=== PATIENT | female | born 1955 | race Caucasian/White ===

== ENCOUNTER 2016-12-27 16:46 | Inpatient (IN) | payer OTHER, BC ==
[~2016-12-27] VITALS: Ht 162.6 cm; Wt 118.9 kg
[~2016-12-27 16:46] MED LIST: ALDACTONE25 MG PO; AMITRIPTYLINE H10 MG PO; ATORVASTATIN CA40 MG PO; DIFLUCAN150 MG PO; ESOMEPRAZOLE MA20 MG PO; ESTRACE1 MG PO; FIBER GUMMY PO; HAIR/SKIN/NAILS PO; KLOR-CON 1010 MEQ PO; LANTUS SOL100 UNITS/ SC; LEVAQUIN500 MG PO; MACROBID100 MG PO; METOPROLOL SUCC50 MG PO; MORPHINE SULFAT15 M2 PO; MULTIPLE VITAMIN PO; NEURONTIN300 MG PO; NOVOLIN NP100 UNITS/ SC; NOVOLIN R U-1001 ML; OXYCODONE HCL5 MG PO; PAXIL10 MG PO; PYRIDIUM200 MG PO; TORSEMIDE20 MG PO; VITAMIN D-31000 UNIT PO; XARELTO10 MG PO
--- NOTE | 2016-12-27 17:53 | ED CLINICAL REPORT ---
Clinical Report - Physicians/Mid Levels [facility] [address] [place] [address] 12/27/2016 16:47 Patient: RAFAEL HARGROVE V Time Seen: 17:38; initial patient contact, initial documentation, patient care assumed. Arrived- By private vehicle. Historian- patient. HISTORY OF PRESENT ILLNESS Chief Complaint: LESION, BOIL and TENDER AREA. This started about 1 1/2 weeks ago and is still present and worsening. Not itchy or burning. It is described as painful. It has been located on the right and left abdomen. No cause has been identified. Similar symptoms previously: None. Recent medical care: The patient was seen recently in the office. ( went to dr about 1 wk ago, placed on bactrim, area just keeps getting worse). REVIEW OF SYSTEMS No fever. All systems otherwise negative, except as recorded above. PAST HISTORY See nurses notes. PROBLEMS: Pacemaker. --19:04 Meenakshi Frederick R.N. Cardiovascular Risk Factors. Low back pain. Neuropathy. Hypothyroidism. Hyperlipidemia. Angina. Gastroesophageal Reflux Disease. Anxiety Reaction. Congestive Heart Failure. Arrhythmia. Atrial Fibrillation. Chronic Back Pain. Hypertension. --19:05 Meenakshi Frederick R.N. ADDITIONAL SURGERIES: Appendectomy. Back Surgery. Cardiac Procedures. Cholecystectomy. . Hysterectomy. Oophorectomy. Pacemaker. Salpingectomy. --19:06 Meenakshi Frederick RSageN. Diabetes mellitus. SOCIAL HISTORY Never smoker. Occasional alcohol use. No drug use. No recent travel. Is a local resident. FAMILY HISTORY Negative. ADDITIONAL NOTES The nursing notes have been reviewed with agreement regarding the chief complaint, HPI, ROS, PMH and patient medications and allergies. PHYSICAL EXAM Vital Signs: 12/27/2016 17:22 HR: 69. RR: 16. O2 saturation: 98%. Temp: 98.6 F. Have been reviewed as normal and appear to be correct. Blood pressure: 147/51- blood pressure normal. Appearance: Alert. Oriented X3. No acute distress. Eyes: Pupils equal, round and reactive to light. Conjunctivae and eyelids normal. Neck: Neck supple. Respiratory: No respiratory distress. Abdomen: Nontender. No organomegaly. (obese). Skin: Skin warm and dry. Normal skin color. No rash. Normal skin turgor. Single large abscess with fluctuance, pointing and cellulitis to the abdomen. No drainage. (very large abscess covering entire suprapubic area and pelvis, size of a softball or larger). Extremities: Normal external inspection. Extremities nontender. Neuro: Oriented X 3. No motor deficit. No sensory deficit. LABS, X-RAYS, AND EKG Laboratory Tests: CBC w Diff: (NANCY: 12/27/2016 18:30) ( [facility] 12/27/2016 19:05) Final results Test Result Flag Units (Reference) WHITE BLOOD COUNT 13.2 H K/uL (4.5-11.5) RED BLOOD COUNT 4.67 M/uL (4.00-5.20) HEMOGLOBIN 13.0 gm/dL (12.0-16.0) HEMATOCRIT 40.6 % (36.0-46.0) MEAN CELL VOLUME 87 fL (80-100) MEAN CORPUSCULAR HGB 28 pg (26-34) MEAN CORPUSCULAR HGB CONC 32 g/dL (31-37) RED CELL DISTRIBUTION WIDTH 16.4 H % (11.6-14.8) PLATELET COUNT 399 K/uL (150-400) NEUTROPHIL % 69.3 % (50-75) LYMPH % 22.6 L % (25-40) MONO % 5.8 % (3-14) EOSINOPHIL % 2.0 % (0-4) BASOPHIL % 0.3 % (0-2) Lactate, Serum: (NANCY: 12/27/2016 18:30) ( [facility] 12/27/2016 19:21) Final results Test Result Flag Units (Reference) LACTIC ACID 1.4 mmol/L (0.4-2.0) [id number]: (NANCY: 12/27/2016 18:30) ( [facility] 12/27/2016 19:49) Final results Test Result Flag Units (Reference) PROCALCITONIN <0.5 ng/mL (0-0.5) PCT Concentration: Interpretation : Risk/option for action PCT <=0.5 ng/mL : Systemic : Low risk forinfection(sepsis): progression to severeis not likely. : systemic infection.Local bacterial : CAUTION-PCT levelsinfection is : below 0.5 ng/mL do notpossible. : exclude an infection,because localizedinfections (withoutsystemic signs) may beassociated with suchlow levels. If PCT ismeasured very earlyafter a bacterialchallenge (usually <6hours), these valuesmay still be low. Inthis case PCT shouldbe re-assessed 6-24hours later. PCT >0.5 and : Systemic infection: Moderate risk for<= 2 ng/mL : (sepsis) is : progression to severepossible, but : systemic infection.other conditions : The patient should beare known to : closely monitoredelevate PCT. : both clinically andby re-assessing PCTwithin 6-24 hours. PCT > 2 ng/mL : Systemic infection: High risk for(sepsis) is likely: progression to severeunless other : systemic infection.causes are known. : PCT >= 10 ng/mL : Important systemic: High likelihood ofinflammatory : severe sepsis orresponse, almost : septic shock.exclusively due to:severe bacterial :sepsis or septic :shock. : CMP: (NANCY: 12/27/2016 18:30) ( MsgRcvd 12/27/2016 19:21) Final results Test Result Flag Units (Reference) GLUCOSE 155 H mg/dL (70-110) BUN 21 H mg/dL (7-18) CREATININE 1.3 mg/dL (0.6-1.3) Estimated GFR 44.26 mL/min Estimated GFR- 53.64 mL/min Note: Persistent reduction over 3 months in eGFR<60 mL/min/1.73 m2 defines CKD. Patients with eGFR values>=60 mL/min/1.73 m2 may also have CKD if evidence ofpersistent proteinuria. Additional information may be foundat www.kidney.org. SODIUM 136 mmol/L (136-145) POTASSIUM 4.0 mmol/L (3.5-5.1) CHLORIDE 100 mmol/L (98-107) CARBON DIOXIDE 28 mmol/L (21-32) CALCIUM 10.6 H mg/dL (8.5-10.1) TOTAL PROTEIN 8.4 H g/dL (6.4-8.2) ALBUMIN 3.1 L g/dL (3.3-5.0) BILIRUBIN, TOTAL 0.2 mg/dL (0.0-1.0) ALKALINE PHOSPHATASE 154 H U/L (46-116) AST (SGOT) 23 U/L (15-37) ALT (SGPT) 37 U/L (12-78) Culture, Wound Deep: (NANCY: 12/27/2016 18:30) ( MsgRcvd 12/27/2016 19:27) IP SPECIMEN DESCRIPTION: ABDOMEN Test Result Flag Units (Reference) GRAM STAIN, WOUND, DEEP EPITHELIAL CELLS: NONE NO CELLS/NO BACTERIA: NO CELLS OR BACTERIA SEEN WHITE BLOOD CELLS: NONE . PROGRESS AND PROCEDURES Discussed case with on-call health care provider, (call returned 20:09 Dr Sanchez, surgeon). Reviewed test results and need for additional work-up. Agreed upon decision to admit. Health care provider will see patient in hospital. Discussed case with on-call health care provider, (call returned 2020 Dr Juárez). Reviewed test results and need for additional work-up. Agreed upon treatment plan and decision to admit. Health care provider will see patient in hospital. Patient counseled in person regarding the patient's stable condition, test results, diagnosis, need for additional testing, admission and surgery and wound care. Differential Diagnosis: Other possible considerations: abscess, cellulitis, sepsis, mrsa, folliculitis, substance abuse, fb, tumor. Above considerations are based on history, physical exam and laboratory data. Differential diagnosis was discussed with patient. Disposition: Admitted to Acute Care. 20:09. Condition: good and stable. CLINICAL IMPRESSION Single deep abscess to the abdominal wall. (Electronically signed by Jessenia Muhammad A.R.N.P. 12/27/2016 23:04)
--- NOTE | 2016-12-27 17:53 | ED ORDER SUMMARY ---
..... Patient: RAFAEL HARGROVE V OrderSheet [facility] VisitID: [id number] [address] [place] [address] 61y, F Registration Date/Time: 12/27/2016 ORDER SHEET Weight: 108.8 kg Allergies: Zofran GENERAL ORDERS: Blood Culture (Yes) (bactrim) Urgent (17:44 12/27/2016 HBivens A.R.N.P.) (Ack 17:58 KHoerner) (18:54 KHoerner) Culture, Wound Deep (Abdomen) (abdomen) Urgent (17:45 12/27/2016 HBivens A.R.N.P.) (Ack 17:58 KHoerner) (18:34 TChapman R.N.) CBC w Diff Urgent (17:45 12/27/2016 HBivens A.R.N.P.) (Ack 17:58 KHoerner) (18:55 KHoerner) CMP Urgent (17:45 12/27/2016 HBivens A.R.N.P.) (Ack 17:58 KHoerner) (18:55 KHoerner) Lactate, Serum Urgent (17:45 12/27/2016 HBivens A.R.N.P.) (Ack 17:58 KHoerner) (18:55 KHoerner) PCT (Procalcitonin) Urgent (17:45 12/27/2016 HBivens A.R.N.P.) (Ack 17:58 KHoerner) (18:55 KHoerner) MEDICATION ORDERS: IV FLUIDS: IV Saline Lock (17:45 12/27/2016 HBivens A.R.N.P.) (18:35 TChapman R.N.) Vancomycin IV 1 gm/200mL (NOW) (20:10 12/27/2016 HBivens A.R.N.P.) (20:35 TBowen R.N.) ORDER SHEET NOTES: [Electronically signed by Jessenia Muhammad.R.N.P. (23:04 12/27/2016)] [Electronically signed by Deandra Moya R.N. (02:50 12/28/2016)] [Electronically locked/signed by Deandra Moya R.N. (02:50 12/28/2016)]
--- NOTE | 2016-12-27 17:53 | ED NURSING NOTES ---
Clinical Report - Nurses [facility] [address] [place] [address] 12/27/2016 16:47 Patient: RAFAEL HARGROVE V TRIAGE Triage time 17:22. Acuity: LEVEL 3. Chief Complaint: BOIL and TENDER AREA. --17:32 Meenakshi Frederick R.N. 17:22 12/27/16. HR: 69. RR: 16. O2 saturation: 98%. Temp: 98.6 F. Pain level now 04/18. --17:32 Meenakshi Frederick R.N. Acuity: LEVEL 3. --17:45 Meenakshi Frederick R.N. 17:43 12/27/16. BP: 147/51. --17:45 Meenakshi Frederick R.N. Weight: 108.8 kg. Height/Length: 64 inches. BMI: 41.2. --20:48 Venancio Breen Medications Albiglutide Subcutaneous, weekly. NovoLOG Subcutaneous 40 units, before meals. --17:25 Meenakshi Frederick R.N. Toujeo. --17:26 Meenakshi Frederick R.N. Tanzeum Subcutaneous. --17:26 Meenakshi Frederick R.N. PARoxetine HCl Oral. --17:26 Meenakshi Frederick R.N. Spironolactone Oral. --17:26 Meenakshi Frederick R.N. Xarelto Oral. --17:27 Meenakshi Frederick R.N. OxyCODONE HCl Oral. --17:27 Meenakshi Frederick R.N. Estradiol Acetate Vaginal. --17:27 Meenakshi Frederick R.N. Amitriptyline HCl External. --17:28 Meenakshi Frederick R.N. Lyrica Oral. --17:28 Meenakshi Frederick R.N. Morphine Sulfate ER Beads Oral. --17:28 Meenakshi Frederick R.N. Torsemide Oral. --17:28 Meenakshi Frederick R.N. Bactrim DS Oral. --17:29 Meenakshi Frederick R.N. Allergies Zofran. --17:29 Meenakshi Frederick R.N. History Arrived by private vehicle. Historian: patient. Accompanied by family. Location - genitalia. ( noticed it coming on 1 1/2 weeks ago. has tried warm compresses). SOCIAL HX: No alcohol use or drug use. NUTRITIONAL RISK ASSESSMENT: The nutritional risk assessment revealed no deficiencies. FUNCTIONAL ASSESSMENT: Functional assessment: no impairments noted. LEARNING NEEDS ASSESSMENT: The learning needs assessment revealed no barriers. SKIN INTEGRITY ASSESSMENT: Skin integrity risk assessment completed. No skin integrity risk identified. --17:32 Meenakshi Frederick R.N. No fever, headache or difficulty breathing. PAST MEDICAL HX: Diabetes mellitus. Heart disease. FALL RISK ASSESSMENT: Fall risk assessment completed. No fall risk identified. NUTRITIONAL RISK ASSESSMENT: The nutritional risk assessment revealed no deficiencies. FUNCTIONAL ASSESSMENT: Functional assessment: no impairments noted. LEARNING NEEDS ASSESSMENT: The learning needs assessment revealed no barriers. SKIN INTEGRITY ASSESSMENT: Skin integrity risk assessment completed. No skin integrity risk identified. --17:45 Meenakshi Frederick R.N. PROBLEMS: Pacemaker. --19:04 Meenakshi Frederick R.N. Cardiovascular Risk Factors. Low back pain. Neuropathy. Hypothyroidism. Hyperlipidemia. Angina. Gastroesophageal Reflux Disease. Anxiety Reaction. Congestive Heart Failure. Arrhythmia. Atrial Fibrillation. Chronic Back Pain. Hypertension. --19:05 Meenakshi Frederick R.N. ADDITIONAL SURGERIES: Appendectomy. Back Surgery. Cardiac Procedures. Cholecystectomy. . Hysterectomy. Oophorectomy. Pacemaker. Salpingectomy. --19:06 Meenakshi Frederick R.N. Interventions ID band on patient. --17:32 Meenakshi Frederick R.N. ID band on patient. To treatment room. --17:45 Meenakshi Frederick R.N. PHYSICAL ASSESSMENT GENERAL / NEURO / PSYCH: Alert. Appears in pain. Oriented X 4. HEENT: Pupils equal, round and reactive to light. RESPIRATORY: Respirations not labored. Breath sounds within normal limits. CVS: Capillary refill less than 2 seconds. Pulses within normal limits. GI / : Abdomen nontender. ( genital area swollen and tender with areas of pus filled blisters). SKIN: Skin is warm. Drainage. Skin tenderness present. Increased warmth present. Erythema present. --17:46 Meenakshi Frederick R.N. NURSING PROGRESS NOTES The plan of care for this patient has been created. Patient gowned. Head of bed elevated. Reassurance given. Call light placed in reach. Side rails up x 1. Bed placed in lowest position. Brakes of bed on. Patient ready for evaluation- chart flagged and HEALTH NAVIGATOR notified. --17:47 Meenakshi Frederick R.N. 17:15 12/27/16. BP: 85/44. HR: 81. RR: 16. O2 saturation: 100%. --17:57 Meenakshi Frederick R.N. 18:35 12/27/2016 Site #1 started via IV in the left antecubital space with an 20g angiocath; one attempt. Blood drawn: rainbow set and cultures x1. Labeled in the presence of the patient and sent to the lab. Saline lock flushed with saline. --18:35 Meenakshi Frederick R.N. 18:46 12/27/16. Patient ID band checked for patient name and birthdate: patient confirmed. Blood samples drawn from the left antecubital space peripheral IV site with syringe by nurse ; labeled in presence of the patient and sent to lab: rainbow set: blood culture (1st set). Line flushed with 10 mL normal saline post blood draw. --18:46 Esha Mcpherson R.N. 19:17 12/27/16. BP: 125/57. HR: 75. RR: 18. O2 saturation: 95%. Temp: 98.4 F. Pain level now 5/10. --19:18 Meenakshi Frederick R.N. 19:17 12/27/16. Care transferred and report given. ( Deandra). --19:18 Meenakshi Frederick R.N. 20:35 12/27/2016 Started 1 gm of Vancomycin IVPB; at 200 mg/hr over 1 minute(s) via site #1 via IV pump. Allergies verified and confirmed 5 rights. IV patency established. IV site checked: no pain, redness, or swelling. IV flushed thoroughly pre- and post-medication administration. --20:35 Venancio Breen 21:43 12/27/2016 Vancomycin IVPB Discontinued: bag #1 completed. Total amount infused: 200 mL. IV patency established. IV site checked: no pain, redness, or swelling. IV flushed thoroughly. --21:43 Venancio Breen DISPOSITION / DISCHARGE Admitted. Report was given to a nurse via a phone call. Report included patient's care, treatment, medications, reviewed medication reconcilliation, and condition (including any recent changes or anticipated changes). All questions were answered. Report was acknowledged and care was transferred. Bed obtained (22:31). --02:48 Venancio Breen Departure time: 2230 02:49 Dec 27 2016. --02:49 Venancio Breen late entry - 02:50 12/28/16. --02:50 Venancio Breen 02:50 12/28/16. BP: 149/72. HR: 72. RR: 18. O2 saturation: 100%. Temp: deferred. Pain level now 0/10. --02:50 Venancio Breen Locked/Released at 12/28/2016 2:50 by Venancio Breen
--- NOTE | 2016-12-27 17:53 | ED ORDER SUMMARY ---
..... Patient: RAFAEL HARGROVE V OrderSheet [facility] VisitID: [id number] [address] [place] [address] 61y, F Registration Date/Time: 12/27/2016 ORDER SHEET Weight: 108.8 kg Allergies: Zofran GENERAL ORDERS: Blood Culture (Yes) (bactrim) Urgent (17:44 12/27/2016 HBivens A.R.N.P.) (Ack 17:58 KHoerner) (18:54 KHoerner) Culture, Wound Deep (Abdomen) (abdomen) Urgent (17:45 12/27/2016 HBivens A.R.N.P.) (Ack 17:58 KHoerner) (18:34 TChapman R.N.) CBC w Diff Urgent (17:45 12/27/2016 HBivens A.R.N.P.) (Ack 17:58 KHoerner) (18:55 KHoerner) CMP Urgent (17:45 12/27/2016 HBivens A.R.N.P.) (Ack 17:58 KHoerner) (18:55 KHoerner) Lactate, Serum Urgent (17:45 12/27/2016 HBivens A.R.N.P.) (Ack 17:58 KHoerner) (18:55 KHoerner) PCT (Procalcitonin) Urgent (17:45 12/27/2016 HBivens A.R.N.P.) (Ack 17:58 KHoerner) (18:55 KHoerner) MEDICATION ORDERS: IV FLUIDS: IV Saline Lock (17:45 12/27/2016 HBivens A.R.N.P.) (18:35 TChapman R.N.) Vancomycin IV 1 gm/200mL (NOW) (20:10 12/27/2016 HBivens A.R.N.P.) (20:35 TBowen R.N.) ORDER SHEET NOTES: [Electronically signed by Jessenia Muhammad.R.N.P. (23:04 12/27/2016)] [Electronically signed by Deandra Moya R.N. (02:50 12/28/2016)] [Electronically locked/signed by Deandra Moya R.N. (02:50 12/28/2016)]
[2016-12-27 23:10] VITALS: BP 130/48
[2016-12-27] MEDS ORDERED: BACTRIM DS1 TAB PO (23:57)
[2016-12-27] MEDS ORDERED: LYRICA100 MG PO (23:57)
[2016-12-28] VITALS (9 sets, daily range): BP systolic 114–151; BP diastolic 62–81
--- NOTE | 2016-12-28 | Progress Note ---
Subjective General Medical Consultation Patient Name: Maryse Barroso Admission Date: December 27, 2016 Date of Consultation: December 27, 2016 Primary Care Provider: MERY Buaer Attending Physician: Anant Juárez M.D. Admitting Physician: Anant Juárez M.D. Code Status: Full Code Room: 212 [facility] Historian: Patient Reliability: Good Chief Complaint: Abdominal wall abscess History of Present Illness: The patient is a 61-year-old female with a significant past medical history of atrial fibrillation, heart block status post pacemaker placement, hypertension, hyperlipidemia, type 2 diabetes mellitus insulin requiring, chronic kidney disease, gallbladder dysfunction, colonic polyps, cervical disc disease, lumbar disc disease, estrogen esophageal reflux, CHF presented to [facility] emergency department on the day of admission secondary to complaints of abdominal wall abscess. [facility] ER evaluation consistent with abdominal wall abscess requiring incision and drainage. Secondary to the above, the patient was admitted by Sam Sanchez M.D. with consultation by hospitalist service for further evaluation and treatment. PAST MEDICAL HISTORY Illnesses: 1. Hypertension 2. Type 2 diabetes mellitus-insulin requiring 3. Heart block status post pacemaker placement 4. Atrial fibrillation 5. Hyperlipidemia 6. Chronic kidney disease 7. Gallbladder dysfunction 8. Colonic polyps 9. Vertebral disc disease-cervical/lumbar 10. Depression 11. Gastroesophageal reflux Allergies: 1. Codeine 2. Phenergan 3. Antimicrobial-type unknown Medications: 1. Amitriptyline 10 mg by mouth daily at bedtime 2. Estradiol 1 mg by mouth daily 3. Gabapentin 600 mg by mouth 3 times a day 4. Lantus insulin 60 units subcutaneous daily at bedtime 5. Novolin R sliding scale 6. Oxycodone 5 mg by mouth 5 times a day when necessary pain 7. MS Contin 15 mg by mouth daily at bedtime 8. Paxil 25 mg by mouth daily 9. Lyrica 300 mg by mouth twice a day 10. Xarelto 20 mg by mouth daily 11. Spironolactone 25 mg by mouth daily 12. Bactrim DS one by mouth twice a day 13. Torsemide 40 mg by mouth every morning and 10 mg by mouth daily at bedtime Surgery: 1. PDA surgery 2. 2 3. KIM/BSO 4. Appendectomy 5. Cholecystectomy 6. Cervical and lumbar spine surgery 7. Pacemaker placement 8. Colonoscopy with polypectomy Injuries: 1. No significant Hospitalizations: 1. For above surgery and medical problems FAMILY HISTORY Parents: 1. Father, living, 83, heart disease, diabetes mellitus, 2. Mother, , 55, CVA, hypertension Siblings: 1. Lawrence, living, 61, healthy 2. Gato, living, 58, heart problems 3. Lucie, , 32, respiratory failure 4. Jorge, living, 50, diabetes Children: 1. The patient has 5 children all which are in good health Other significant family history: None SOCIAL HISTORY 1. Marital Status: 2. Buddhist: Zoroastrianism-Anabaptism 3. Education: High school, 2 years of college 4. Employment History: Retired, worked for [employer] for 25 years 5. Occupational health exposures: None HABITS 1. Tobacco: None 2. Drugs: None 3. Alcohol: One drink per year 4. Caffeine: One cup coffee per week HEALTH SUPERVISION Item/Test 1. Vision screen: 2015 2. Cholesterol Profile: Unknown 3. PSA: Not applicable 4. ANNE-MARIE: Not applicable 5. FOBT: Unknown 6. Blood Glucose: 2016 7. Colonoscopy: 2015 8. History and physical exam: Unknown 9. Audiogram: Unknown 10. Mammogram: Unknown 11. Pap/pelvic exam: None since hysterectomy IMMUNIZATIONS: 1. Pneumococcal: Unknown 2. Influenza: 2015 3. Tetanus: Unknown ADVANCED DIRECTIVES: 1. Living well: No 2. POLST: No 3. 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 Donor card: No REVIEW OF SYSTEMS Remarkable for those things stated in the history of present illness and past medical history. Seventeen point review of system completed with the following notable findings: General: Pain, weakness, chills Skin: Rashes, changes in skin Cardiovascular: Ankle swelling, shortness of breath with exertion Genitourinary: Nocturia Endocrine: Polydipsia/polyuria Physical Exam Vital Signs / I&Os Vital Signs Date Time Temp Pulse Resp B/P Pulse O2 O2 Flow FiO2 Ox Delivery Rate 12/27 2310 98.8 60 20 130/48 97 Room Air I&O 12/28 0000 12/27 1600 12/27 0800 Intake Total Output Total Balance General Appearance Alert, Oriented X3, Cooperative, No acute distress HEENT Atraumatic, PERRLA, EOMI, Moist mucous membranes Lungs Clear to auscultation, Normal air movement Neck Supple, No JVD Cardiovascular Normal S1 and S2, irregular rhythm, rate controlled Abdomen Normal bowel sounds, Soft, No tenderness, erythematous, edematous area suprapubic region. Tender to palpation. No discharge Extremities No cyanosis, No clubbing, No edema Neurological Cranial nerves intact, Strength 5/5 x4 ext's, No lateralizing signs Psych/Mental Status Mental status normal, Mood normal LAB Results Laboratory Tests 12/27 12/27 12/27 183 183 183 Chemistry Plasma Sodium (136 - 145 mmol/L) 136 Plasma Potassium (3.5 - 5.1 mmol/L) 4.0 Plasma Chloride (98 - 107 mmol/L) 100 CO2 (Enzymatic) (21 - 32 mmol/L) 28 BUN (7 - 18 mg/dL) 21 Creatinine (0.6 - 1.3 mg/dL) 1.3 Est GFR ( Amer) (mL/min) 53.64 Est GFR (Non-Af Amer) (mL/min) 44.26 Glucose (70 - 110 mg/dL) 155 Lactic Acid (0.4 - 2.0 mmol/L) 1.4 Plasma Calcium (8.5 - 10.1 mg/dL) 10.6 Total Bilirubin (0.0 - 1.0 mg/dL) 0.2 AST (15 - 37 U/L) 23 ALT (12 - 78 U/L) 37 Alkaline Phosphatase (46 - 116 U/L) 154 Total Protein (6.4 - 8.2 g/dL) 8.4 Albumin (3.3 - 5.0 g/dL) 3.1 Procalcitonin (0 - 0.5 ng/mL) <0.5 Hematology WBC (4.5 - 11.5 K/uL) 13.2 RBC (4.00 - 5.20 M/uL) 4.67 Hgb (12.0 - 16.0 gm/dL) 13.0 Hct (36.0 - 46.0 %) 40.6 MCV (80 - 100 fL) 87 MCH (26 - 34 pg) 28 RDW (11.6 - 14.8 %) 16.4 Neut % (Auto) (50 - 75 %) 69.3 Lymph % (Auto) (25 - 40 %) 22.6 Larimer % (Auto) (3 - 14 %) 5.8 Eos % (Auto) (0 - 4 %) 2.0 Baso % (Auto) (0 - 2 %) 0.3 Plt Count, EDTA (150 - 400 K/uL) 399 PUBS MCHC (31 - 37 g/dL) 32 Microbiology Date/Time Procedure - Status Source Growth 12/27 1829 Deep Wound Culture - RES ABDOMEN 12/27 1829 Deep Wound Culture - RES ABDOMEN 12/27 1829 Gram Stain - RES ABDOMEN 12/27 1829 Blood Culture - RECD BLOOD Assessment and Plan Problem List 1. Abscess of abdominal wall Plan -Patient presents with suprapubic abscess -Follow up with Dr. Sanchez -Vancomycin per pharmacy protocol -I&D per Dr. Sanchez -[facility] practice to continue medical follow-up in a.m. 2. Diabetes type 2, uncontrolled Plan -Patient with long-standing history of diabetes mellitus -Check hemoglobin A1c in a.m. -Blood sugar fairly well-controlled. Blood sugar noted to be 155 mg/dL -Continue Lantus/Humalog sliding scale -Follow per family practice 3. Hypercalcemia Status Acute Onset Date Unknown Plan -Patient with findings of mild hypercalcemia -Admission calcium 10.6. -Recheck in a.m., consider ionized calcium/intact PTH of elevated in a.m. -Follow up with [facility] practice 4. Atrial fibrillation Status Chronic Onset Date Unknown Plan -Patient with history of atrial fibrillation -Chronic anticoagulation -Paced rhythm at this time -Hold anticoagulation and lower plan surgery -Follow up with [facility] -Monitor -Patient underwent Lexiscan-Cardiolite stress test last month which showed no evidence of ischemia. Estimated ejection fraction 55% with normal LV function noted on that study. No signs of coronary disease. 5. Chronic anticoagulation Status Chronic Onset Date Unknown Plan -Patient with history of chronic anticoagulation -Old xarelto until surgery completed -Follow up with [facility] practice a.m. 6. UTI (urinary tract infection) Status Acute Onset Date Unknown Plan -Patient with findings of UTI on urinalysis -Urine C&S pending -Levaquin 500 mg IV daily (patient with allergy to Keflex/cephalosporins) 7. Dehydration Status Acute Onset Date Unknown Plan -Patient with findings of mild dehydration -Monitor Current status: Fair, unstable Anticipated discharge date: Anticipated discharge in 2-3 days Anticipated discharge placement: Home Patient care time: Time spent in chart review, patient interview, physical exam, CPOE, and care documentation: 70 minutes Visit to patient today: 1 Complexity of care: High E&M Codes Inpatient Consult: Comp-Moderate/[id number]
--- NOTE | 2016-12-28 | Progress Note ---
Subjective General Medical Consultation Patient Name: Maryse Barroso Admission Date: December 27, 2016 Date of Consultation: December 27, 2016 Primary Care Provider: MERY Bauer Attending Physician: Anant Juárez M.D. Admitting Physician: Anant Juárez M.D. Code Status: Full Code Room: 212 [facility] Historian: Patient Reliability: Good Chief Complaint: Abdominal wall abscess History of Present Illness: The patient is a 61-year-old female with a significant past medical history of atrial fibrillation, heart block status post pacemaker placement, hypertension, hyperlipidemia, type 2 diabetes mellitus insulin requiring, chronic kidney disease, gallbladder dysfunction, colonic polyps, cervical disc disease, lumbar disc disease, estrogen esophageal reflux, CHF presented to [facility] emergency department on the day of admission secondary to complaints of abdominal wall abscess. [facility] ER evaluation consistent with abdominal wall abscess requiring incision and drainage. Secondary to the above, the patient was admitted by Sam Sanchez M.D. with consultation by hospitalist service for further evaluation and treatment. PAST MEDICAL HISTORY Illnesses: 1. Hypertension 2. Type 2 diabetes mellitus-insulin requiring 3. Heart block status post pacemaker placement 4. Atrial fibrillation 5. Hyperlipidemia 6. Chronic kidney disease 7. Gallbladder dysfunction 8. Colonic polyps 9. Vertebral disc disease-cervical/lumbar 10. Depression 11. Gastroesophageal reflux Allergies: 1. Codeine 2. Phenergan 3. Antimicrobial-type unknown Medications: 1. Amitriptyline 10 mg by mouth daily at bedtime 2. Estradiol 1 mg by mouth daily 3. Gabapentin 600 mg by mouth 3 times a day 4. Lantus insulin 60 units subcutaneous daily at bedtime 5. Novolin R sliding scale 6. Oxycodone 5 mg by mouth 5 times a day when necessary pain 7. MS Contin 15 mg by mouth daily at bedtime 8. Paxil 25 mg by mouth daily 9. Lyrica 300 mg by mouth twice a day 10. Xarelto 20 mg by mouth daily 11. Spironolactone 25 mg by mouth daily 12. Bactrim DS one by mouth twice a day 13. Torsemide 40 mg by mouth every morning and 10 mg by mouth daily at bedtime Surgery: 1. PDA surgery 2. 2 3. KIM/BSO 4. Appendectomy 5. Cholecystectomy 6. Cervical and lumbar spine surgery 7. Pacemaker placement 8. Colonoscopy with polypectomy Injuries: 1. No significant Hospitalizations: 1. For above surgery and medical problems FAMILY HISTORY Parents: 1. Father, living, 83, heart disease, diabetes mellitus, 2. Mother, , 55, CVA, hypertension Siblings: 1. Lawrence, living, 61, healthy 2. Gato, living, 58, heart problems 3. Lucie, , 32, respiratory failure 4. Jorge, living, 50, diabetes Children: 1. The patient has 5 children all which are in good health Other significant family history: None SOCIAL HISTORY 1. Marital Status: 2. Alevism: Jain-Episcopalian 3. Education: High school, 2 years of college 4. Employment History: Retired, worked for [employer] for 25 years 5. Occupational health exposures: None HABITS 1. Tobacco: None 2. Drugs: None 3. Alcohol: One drink per year 4. Caffeine: One cup coffee per week HEALTH SUPERVISION Item/Test 1. Vision screen: 2015 2. Cholesterol Profile: Unknown 3. PSA: Not applicable 4. ANNE-MARIE: Not applicable 5. FOBT: Unknown 6. Blood Glucose: 2016 7. Colonoscopy: 2015 8. History and physical exam: Unknown 9. Audiogram: Unknown 10. Mammogram: Unknown 11. Pap/pelvic exam: None since hysterectomy IMMUNIZATIONS: 1. Pneumococcal: Unknown 2. Influenza: 2015 3. Tetanus: Unknown ADVANCED DIRECTIVES: 1. Living well: No 2. POLST: No 3. Code Status: Full Code 4. Durable Power Internet Marketing Specialist Health care: No 5. Donor card: No REVIEW OF SYSTEMS Remarkable for those things stated in the history of present illness and past medical history. Seventeen point review of system completed with the following notable findings: General: Pain, weakness, chills Skin: Rashes, changes in skin Cardiovascular: Ankle swelling, shortness of breath with exertion Genitourinary: Nocturia Endocrine: Polydipsia/polyuria Physical Exam Vital Signs / I&Os Vital Signs Date Time Temp Pulse Resp B/P Pulse O2 O2 Flow FiO2 Ox Delivery Rate 12/27 2310 98.8 60 20 130/48 97 Room Air I&O 12/28 0000 12/27 1600 12/27 0800 Intake Total Output Total Balance General Appearance Alert, Oriented X3, Cooperative, No acute distress HEENT Atraumatic, PERRLA, EOMI, Moist mucous membranes Lungs Clear to auscultation, Normal air movement Neck Supple, No JVD Cardiovascular Normal S1 and S2, irregular rhythm, rate controlled Abdomen Normal bowel sounds, Soft, No tenderness, erythematous, edematous area suprapubic region. Tender to palpation. No discharge Extremities No cyanosis, No clubbing, No edema Neurological Cranial nerves intact, Strength 5/5 x4 ext's, No lateralizing signs Psych/Mental Status Mental status normal, Mood normal LAB Results Laboratory Tests 12/27 12/27 12/27 183 183 183 Chemistry Plasma Sodium (136 - 145 mmol/L) 136 Plasma Potassium (3.5 - 5.1 mmol/L) 4.0 Plasma Chloride (98 - 107 mmol/L) 100 CO2 (Enzymatic) (21 - 32 mmol/L) 28 BUN (7 - 18 mg/dL) 21 Creatinine (0.6 - 1.3 mg/dL) 1.3 Est GFR ( Amer) (mL/min) 53.64 Est GFR (Non-Af Amer) (mL/min) 44.26 Glucose (70 - 110 mg/dL) 155 Lactic Acid (0.4 - 2.0 mmol/L) 1.4 Plasma Calcium (8.5 - 10.1 mg/dL) 10.6 Total Bilirubin (0.0 - 1.0 mg/dL) 0.2 AST (15 - 37 U/L) 23 ALT (12 - 78 U/L) 37 Alkaline Phosphatase (46 - 116 U/L) 154 Total Protein (6.4 - 8.2 g/dL) 8.4 Albumin (3.3 - 5.0 g/dL) 3.1 Procalcitonin (0 - 0.5 ng/mL) <0.5 Hematology WBC (4.5 - 11.5 K/uL) 13.2 RBC (4.00 - 5.20 M/uL) 4.67 Hgb (12.0 - 16.0 gm/dL) 13.0 Hct (36.0 - 46.0 %) 40.6 MCV (80 - 100 fL) 87 MCH (26 - 34 pg) 28 RDW (11.6 - 14.8 %) 16.4 Neut % (Auto) (50 - 75 %) 69.3 Lymph % (Auto) (25 - 40 %) 22.6 Brule % (Auto) (3 - 14 %) 5.8 Eos % (Auto) (0 - 4 %) 2.0 Baso % (Auto) (0 - 2 %) 0.3 Plt Count, EDTA (150 - 400 K/uL) 399 PUBS MCHC (31 - 37 g/dL) 32 Microbiology Date/Time Procedure - Status Source Growth 12/27 1829 Deep Wound Culture - RES ABDOMEN 12/27 1829 Deep Wound Culture - RES ABDOMEN 12/27 1829 Gram Stain - RES ABDOMEN 12/27 1829 Blood Culture - RECD BLOOD Assessment and Plan Problem List 1. Abscess of abdominal wall Plan -Patient presents with suprapubic abscess -Follow up with Dr. Sanchez -Vancomycin per pharmacy protocol -I&D per Dr. Sanchez -[facility] practice to continue medical follow-up in a.m. 2. Diabetes type 2, uncontrolled Plan -Patient with long-standing history of diabetes mellitus -Check hemoglobin A1c in a.m. -Blood sugar fairly well-controlled. Blood sugar noted to be 155 mg/dL -Continue Lantus/Humalog sliding scale -Follow per family practice 3. Hypercalcemia Status Acute Onset Date Unknown Plan -Patient with findings of mild hypercalcemia -Admission calcium 10.6. -Recheck in a.m., consider ionized calcium/intact PTH of elevated in a.m. -Follow up with [facility] practice 4. Atrial fibrillation Status Chronic Onset Date Unknown Plan -Patient with history of atrial fibrillation -Chronic anticoagulation -Paced rhythm at this time -Hold anticoagulation and lower plan surgery -Follow up with [facility] -Monitor -Patient underwent Lexiscan-Cardiolite stress test last month which showed no evidence of ischemia. Estimated ejection fraction 55% with normal LV function noted on that study. No signs of coronary disease. 5. Chronic anticoagulation Status Chronic Onset Date Unknown Plan -Patient with history of chronic anticoagulation -Old xarelto until surgery completed -Follow up with [facility] practice a.m. 6. UTI (urinary tract infection) Status Acute Onset Date Unknown Plan -Patient with findings of UTI on urinalysis -Urine C&S pending -Levaquin 500 mg IV daily (patient with allergy to Keflex/cephalosporins) 7. Dehydration Status Acute Onset Date Unknown Plan -Patient with findings of mild dehydration -Monitor Current status: Fair, unstable Anticipated discharge date: Anticipated discharge in 2-3 days Anticipated discharge placement: Home Patient care time: Time spent in chart review, patient interview, physical exam, CPOE, and care documentation: 70 minutes Visit to patient today: 1 Complexity of care: High E&M Codes Inpatient Consult: Comp-Moderate/[id number]
--- NOTE | 2016-12-28 00:06 | NUR ---
PT ARRIVED TO FLOOR AT APPROXIMATELY 2245. PT DENIES PAIN AT THIS TIME. LUNGS CTA. MONS PUBIS RED/SWOLLEN. ROBLEDO. CLARIFIED "NPO DIRECTED" ORDER WITH DR ISLAS AT 2330 VIA PHONE - PT WILL BE NPO AFTER MIDNIGHT TONIGHT. DIRECTED BY DR ISLAS, CONTACTED DR JOYCE REGARDING OTHER ADMITTING ORDERS. SPOKE TO DR JOYCE AT APPROXIMATELY 2345 - HE WILL INPUT NIGHT TIME MEDICATIONS FOR PT. STATED OK TO TAKE AFTER MIDNIGHT, IF NEEDED. NO COMPLAINTS FROM PT AT THIS TIME. BED IN LOWEST POSITION, CALL LIGHT WITHIN REACH, ABLE TO MAKE NEEDS KNOWN.
--- NOTE | 2016-12-28 02:51 | ED MED RECONCILIATION SUMMARY ---
Patient: RAFAEL HARGROVE V Medication Reconciliation Report [facility] VisitID: [id number] [address] [place] [address] 61y, F Registration Date/Time: 12/27/2016 Weight: 108.8 kg Height/Length: 64 in. BMI: 41.2 ALLERGIES: Zofran The patient's Home Medications are listed below: THE FOLLOWING MEDICATIONS NEED TO BE RECONCILED: Albiglutide Subcutaneous, weekly Amitriptyline HCl External Bactrim DS Oral Estradiol Acetate Vaginal Lyrica Oral Morphine Sulfate ER Beads Oral NovoLOG Subcutaneous 40 units, before meals OxyCODONE HCl Oral PARoxetine HCl Oral Spironolactone Oral Tanzeum Subcutaneous Torsemide Oral Toujeo Xarelto Oral The source(s) of the original Home Medication information: Not obtained. The following Medications were given to the patient in the Emergency Department: Vancomycin [IVPB] IVPB bolus 0, then 1 gm 200 mg/hr, administered: 12/27/2016 8:35:00 PM The following Medications were prescribed to the patient: None.
--- NOTE | 2016-12-28 02:51 | ED DISCHARGE INSTRUCTIONS ---
Patient: BEENA RAFAEL Annika General Instructions [facility] VisitID: [id number] [address] [place] [address] 61y, F Registration Date/Time: 12/27/2016 Single deep abscess to the abdominal wall. (Electronically signed by Jessenia Muhammad A.R.N.P. 12/27/2016 23:04)
--- NOTE | 2016-12-28 02:51 | ED MAR SUMMARY ---
..... Medication Administration Record [facility] [address], [place] [id number] Patient: RAFAEL HARGROVE V Visit ID: [id number] 61y, F Weight: 108.8 kg Height/Length: 64 in BMI: 41.2 ALLERGIES: Zofran Start 20:35 12/27/2016 Nuha RMaryann, Stop 21:43 12/27/2016 Venancio Breen Medication Administered: VANCOMYCIN [IVPB], Dose: 1 gm IVPB over 1 minute(s), Rate: 200 mg/hr, Site: #1 left AC. Medication Ordered: Vancomycin IV 1 gm/200mL (NOW).
--- NOTE | 2016-12-28 02:51 | ED MAR SUMMARY ---
..... Medication Administration Record [facility] [address] [place], [place] [id number] Patient: RAFAEL HARGROVE V Visit ID: [id number] 61y, F Weight: 108.8 kg Height/Length: 64 in BMI: 41.2 ALLERGIES: Zofran Start 20:35 12/27/2016 Nuha RMaryann, Stop 21:43 12/27/2016 Venancio Breen Medication Administered: VANCOMYCIN [IVPB], Dose: 1 gm IVPB over 1 minute(s), Rate: 200 mg/hr, Site: #1 left AC. Medication Ordered: Vancomycin IV 1 gm/200mL (NOW).
--- NOTE | 2016-12-28 02:51 | ED MED RECONCILIATION SUMMARY ---
Patient: RAFALE HARGROVE V Medication Reconciliation Report [facility] VisitID: [id number] [address] [place] [address] 61y, F Registration Date/Time: 12/27/2016 Weight: 108.8 kg Height/Length: 64 in. BMI: 41.2 ALLERGIES: Zofran The patient's Home Medications are listed below: THE FOLLOWING MEDICATIONS NEED TO BE RECONCILED: Albiglutide Subcutaneous, weekly Amitriptyline HCl External Bactrim DS Oral Estradiol Acetate Vaginal Lyrica Oral Morphine Sulfate ER Beads Oral NovoLOG Subcutaneous 40 units, before meals OxyCODONE HCl Oral PARoxetine HCl Oral Spironolactone Oral Tanzeum Subcutaneous Torsemide Oral Toujeo Xarelto Oral The source(s) of the original Home Medication information: Not obtained. The following Medications were given to the patient in the Emergency Department: Vancomycin [IVPB] IVPB bolus 0, then 1 gm 200 mg/hr, administered: 12/27/2016 8:35:00 PM The following Medications were prescribed to the patient: None.
--- NOTE | 2016-12-28 02:51 | ED DISCHARGE INSTRUCTIONS ---
Patient: BEENA RAFAEL Annika General Instructions [facility] VisitID: [id number] [address] [place] [address] 61y, F Registration Date/Time: 12/27/2016 Single deep abscess to the abdominal wall. (Electronically signed by Jessenia Muhammad A.R.N.P. 12/27/2016 23:04)
--- NOTE | 2016-12-28 03:13 | NUR ---
PT. IS RESTING IN BED AT THIS TIME. ADMITTED FOR ABDOMINAL ABSCESS. PT. IS ALERT, ORIENTED, COOPERATIVE. CONTACT PRECAUTIONS IN PLACE D/T WOUND CULTURE FOR MRSA DONE IN ED. PER DR. JOYCE, OK TO TAKE PO MEDS WITH SIPS OF H20. ALSO, NO SCDS NEEDED AT THIS TIME PER DR. JOYCE SINCE PT. HAS RECENTLY BEEN TAKING XARELTO. PT. STATES SHE HAS HX OF NEUROPATHY IN BLE, HAS NUMBNESS/TINGLING/PAIN IN BLE UP TO KNEES. ABSCESS TO MONS PUBIS AREA LARGE/SCABBED OVER. . PT. STATES PAIN 4/10 IN BLE, AND THAT ABSCESS ONLY PAINFUL WHILE WALKING. SCHEDULED MEDICATIONS GIVEN PER ORDER FOR PAIN. BG CHECKED AT 2328, BG 248. INSULIN ADMINISTERED PER ORDER. BG RECHECKED AT 0327, BG 227. WCTM.
--- NOTE | 2016-12-28 08:14 | DIAGNOSTIC IMAGING REPORT ---
PROCEDURE: XR CHEST 1 VIEW INDICATION: Preop, history of chest pain TECHNIQUE: Single view chest. 06:25 hours COMPARISON: 07/26/2016 FINDINGS: Moderate cardiomegaly with dual lead pacemaker in place. No central venous congestion. Mildly coarse interstitial markings, chronic. No dense consolidations, effusions, or pneumothorax. Intact osseous structures. Anterior fusion plate in the lower cervical spine. IMPRESSION: 1. No acute process. 2. Cardiomegaly with dual lead pacemaker, stable. No findings of acute CHF. Chronic coarsening of the interstitial markings suggestive of mild chronic edema.
--- NOTE | 2016-12-28 08:21 | NUR ---
Pharmacy To Dose Vancomycin Dx-Abd abscess PMH-failed outp therapy on BACTRIM Labs- Scr 1.3 CrCl 58 ml/min Cx pending WBC 13.2 Afebrile ED Course- Vanco 1GM X1 @2034 Vanco 1GM x1 @0309 A/P- Will dose vanco maintence dose at 1000 mg IV q12h for est SS trough of ~15.3 mcg/ml. VT ordered for 1130 on 12/29/16. F/U with cx. Pharmacy will cont to follow.
--- NOTE | 2016-12-28 08:38 | Progress Note ---
Subjective General 61-year-old female with a significant past medical history of atrial fibrillation, heart block status post pacemaker placement, hypertension, hyperlipidemia, type 2 diabetes mellitus insulin requiring, chronic kidney disease, gallbladder dysfunction, colonic polyps, cervical disc disease, lumbar disc disease, estrogen esophageal reflux, CHF presented to [facility] emergency department on the day of admission secondary to complaints of abdominal wall abscess. [facility] ER evaluation consistent with abdominal wall abscess requiring incision and drainage. Admitted by Sam Sanchez M.D. with consultation by hospitalist service for further evaluation and treatment. Hospitalist turned pt care over to me. Pt admitted with abscess, DM, UTI and hypercalcemia. Pt reports persistent suprapubic pain and swelling in spite of two weeks of bactrim as outpt. Pt declined surgery when admitted in [place] as she preferred to come home for surgery. BG has been running about 200 fasting. Physical Exam Vital Signs / I&Os Vital Signs Date Time Temp Pulse Resp B/P Pulse O2 O2 Flow FiO2 Ox Delivery Rate 12/28 0341 97.5 60 20 142/67 92 Room Air 12/27 2310 98.8 60 20 130/48 97 Room Air I&O 12/27 0800 12/27 1600 12/28 0000 Intake Total Output Total Balance General Appearance Alert, Oriented X3, Cooperative, No acute distress Lungs Clear to auscultation Cardiovascular Regular rate and rhythm Abdomen Normal bowel sounds, Soft, No tenderness Extremities No edema Skin Large area of erythema and induration in suprapubic area with central drainage site. LAB Results Laboratory Tests 12/27 12/27 12/27 12/28 1830 1830 1830 0330 Chemistry Plasma Sodium (136 - 145 mmol/L) 136 Plasma Potassium (3.5 - 5.1 mmol/L) 4.0 Plasma Chloride (98 - 107 mmol/L) 100 CO2 (Enzymatic) (21 - 32 mmol/L) 28 BUN (7 - 18 mg/dL) 21 Creatinine (0.6 - 1.3 mg/dL) 1.3 Est GFR ( Amer) (mL/min) 53.64 Est GFR (Non-Af Amer) (mL/min) 44.26 Glucose (70 - 110 mg/dL) 155 Lactic Acid (0.4 - 2.0 mmol/L) 1.4 Plasma Calcium (8.5 - 10.1 mg/dL) 10.6 Total Bilirubin (0.0 - 1.0 mg/dL) 0.2 AST (15 - 37 U/L) 23 ALT (12 - 78 U/L) 37 Alkaline Phosphatase (46 - 116 U/L) 154 Total Protein (6.4 - 8.2 g/dL) 8.4 Albumin (3.3 - 5.0 g/dL) 3.1 Procalcitonin (0 - 0.5 ng/mL) <0.5 Hematology WBC (4.5 - 11.5 K/uL) 13.2 RBC (4.00 - 5.20 M/uL) 4.67 Hgb (12.0 - 16.0 gm/dL) 13.0 Hct (36.0 - 46.0 %) 40.6 MCV (80 - 100 fL) 87 MCH (26 - 34 pg) 28 RDW (11.6 - 14.8 %) 16.4 Neut % (Auto) (50 - 75 %) 69.3 Lymph % (Auto) (25 - 40 %) 22.6 [place] % (Auto) (3 - 14 %) 5.8 Eos % (Auto) (0 - 4 %) 2.0 Baso % (Auto) (0 - 2 %) 0.3 Plt Count, EDTA (150 - 400 K/uL) 399 PUBS MCHC (31 - 37 g/dL) 32 Urines Urine Color YELLOW Urine Appearance CLEAR Urine pH (5.0 - 8.0) 6.5 Ur Specific [place] (1.010 - 1.030) 1.010 Urine Protein (NEGATIVE) NEGATIVE Urine Ketones (NEGATIVE) NEGATIVE Urine Blood (NEGATIVE) 1+ Urine Nitrite (NEGATIVE) NEGATIVE Urine Bilirubin (NEGATIVE) NEGATIVE Urine Urobilinogen (0.2 - 1.0 EU/dL) 0.2 Ur Leukocyte Esterase (NEGATIVE) POSITIVE Urine RBC (0 - 1 rbc/hpf) 1-3 Urine WBC (0 - 1 wbc/hpf) 10-15 Ur Epithelial Cells (0 - 5 EPI/hpf) 1-3 Urine Bacteria (NONE SEEN) MODERATE (2+ TO 3+) Urine Glucose (NEGATIVE) 1+ Urine Comment CULTURE INDICATED 12/28 07 Chemistry B-Natriuretic Peptide (5 - 100 pg/ml) 28.7 Microbiology Date/Time Procedure - Status Source Growth 12/28 033 Urine Culture - RECD URINE CC 12/27 1829 Deep Wound Culture - RES ABDOMEN 12/27 1829 Deep Wound Culture - RES ABDOMEN 12/27 1829 Gram Stain - RES ABDOMEN 12/27 1829 Blood Culture - RECD BLOOD Imaging cxr clear. Assessment and Plan Problem List 1. Diabetes type 2, controlled Plan Sliding scale insulin. 2. Suprapubic abscess Plan Antibiotics and surgery as planned. 3. UTI (urinary tract infection) Status Acute Onset Date Unknown Plan On levaquin. 4. Chronic anticoagulation Status Chronic Onset Date Unknown Plan stable. 5. Atrial fibrillation Status Chronic Onset Date Unknown Plan stable with EKG showing ventricular paced rhythm.
--- NOTE | 2016-12-28 13:45 | OPERATIVE REPORT ---
DATE OF SURGERY: 12/28/2016 SURGEON: Sam Sanchez MD PREOPERATIVE DIAGNOSIS: 1. Abdominal wall infection POSTOPERATIVE DIAGNOSIS: 1. Abdominal wall infection PROCEDURE PERFORMED: 1. Excisional debridement of skin and subcutaneous tissue of lower abdominal wall ANESTHESIA: General. INDICATIONS: The patient is a 61-year-old diabetic woman presenting with a nonresolving infection on her lower abdomen. SURGICAL TECHNIQUE: The patient was taken to the operating room, where a general anesthetic was administered and the patient prepped and draped in the usual sterile fashion. A local anesthetic of 0.5% Marcaine with epinephrine was infiltrated and a transverse elliptical incision was made, completely excising the open ulcer. There was some additional necrotic subcutaneous tissue at the upper edge, which was then sharply excised. There did not appear to be any deep-seated abscess or a sinus tract draining anywhere else. Once there was complete excision of all infected or necrotic tissue, the wound was treated with local injections of epinephrine and pinpoint electrocautery for hemostasis. The resulting wound was 5 cm in length, 3 cm in width, and 2 cm in depth. The wound was packed with plain moistened saline gauze and absorbent dressings were placed. The patient left in good condition.
--- NOTE | 2016-12-28 13:50 | NUR ---
PATIENT ARRIVED TO FLOOR FROM PACU AT 1345. TRANSFERRED FROM STRETCHER TO BED WITH 4 PERSON ASSIST AND 'SHAKEEL SLIDE.' PATIENT DENIES PAIN. HAS DRSG IN PLACE TO LOWER ABDOMINAL AREA, CDI.
--- NOTE | 2016-12-28 13:57 | CONSULTATION REPORT ---
DATE OF CONSULTATION: 12/28/2016 REFERRING PHYSICIAN: Dr. Pagan CHIEF COMPLAINT: 1. Infection of lower abdomen HISTORY OF PRESENT ILLNESS: The patient is a 61-year-old woman who about 1-1/2 weeks ago developed a "boil" in her lower abdomen in the prepubic region. She was treated with oral antibiotics and subsequent cultures demonstrated MRSA. The patient went on a trip to [place] and was contacted there and started on Bactrim. The lesion got worse and she went to an emergency department. There was an interest in taking her in for radical debridement as described by the patient, but she refused the debridement and instead continued on antibiotics. She returned now since the erythema seemed to be getting worse. She denies septic symptoms such as fever and chills. MEDICAL/SURGICAL HISTORY: Past medical history includes diabetes, atrial fibrillation, pacemaker, congestive heart failure, GERD, anxiety, angina, hyperlipidemia, hypothyroidism, neuropathy, low back pain, chronic back pain, hypertension. Past surgeries include appendectomy, back surgery, cardiac procedures, cholecystectomy, , hysterectomy, oophorectomy, pacemaker placement, and salpingectomy. MEDICATIONS: 1. Outpatient medications are amitriptyline 10 mg at bedtime. 2. Estradiol 1 mg daily. 3. Gabapentin 600 mg t.i.d. 4. Insulin 60 units subcutaneous at bedtime. 5. A.C. insulin on a sliding scale basis. 6. Morphine 15 mg p.o. bedtime. 7. Oxycodone 5 mg 5 times a day 8. Paroxetine. 9. Paxil 25 mg daily. 10. Lyrica 300 mg b.i.d. 11. Rivaroxaban (Xarelto) 20 mg at bedtime, last dose was the day before admission. 12. Aldactone 25 mg daily. 13. Septra-DS 1 b.i.d. 14. Torsemide 40 mg q.a.m. and 20 mg at bedtime. ALLERGIES: 1. CODEINE. 2. PHENERGAN. 3. POSSIBLE UNLISTED ANTIBIOTIC ALLERGIES. 4. KEFLEX. 5. DIAZEPAM. SOCIAL HISTORY: The patient is a nonsmoker. She does not drink alcohol. She worked for the [employer] in [place]. The patient is . FAMILY HISTORY: Mother at age 55 of a stroke. She had high blood pressure. Father had heart and diabetic problems. REVIEW OF SYSTEMS: a multipoint ros was obtained by Dr. Pagan. She denies new or additional problems. PHYSICAL EXAMINATION: VITAL SIGNS: The patient is alert and cooperative. She is 5 feet 4 inches, 259 pounds. O2 saturation 98%, blood pressure 147/51, heart rate of 69 on admission, respirations of 16. GENERAL: The patient is alert and cooperative and cheerful. HEENT: Ears and nose demonstrate no gross external lesions. Eyes are equal. She is anicteric. NECK: Without palpable masses or thyromegaly. CHEST: Clear without wheeze or rales. HEART: Regular without murmur or gallop. ABDOMEN: Reveals a prepubic area of induration and erythema with a central ulceration with some necrotic subcutaneous fat visible within it. There is also a very superficial sore further down. There is an area of erythema extending about 5 cm in each direction, but no fluctuance or crepitus is obvious. LAB/IMAGING: White count is elevated at 13.2, hemoglobin and hematocrit 13 and 40.6. Lactic acid was normal. Procalcitonin was normal. Glucose was 155. Gram stain of the wound showed no bacteria. IMPRESSION: 1. Abdominal wall (mons) infection, possibly from cellulitis. Palpation does not reveal any deep seated tract going back toward the rectum and groin. PLAN: I recommended the patient be taken to the operating room for operative debridement and drainage if necessary. I explained to her that we would make a moderate- sized incision and see if there are any tracts or any deep seated abscesses. Any necrotic subcutaneous tissue will be excised and the wound will be allowed to heal secondarily. I made the patient aware that there is some uncertainty of how much we will have to do, but I doubt sincerely that we will be doing a very radical procedure in this setting. The patient would like to proceed as described to her.
--- NOTE | 2016-12-28 13:58 | NUR ---
RETURNED TO ROOM AFTER AWAKENING. STATED POSTOPERATIVE PAIN SCORE NONE, DRESSING TO LOW ABDOMEN CLEAN AND DRY. PULSE STEADY AT PACED RATE OF 70. ABLE TO COUGH, CLEAR THROAT, AND DEEP BREATH
--- NOTE | 2016-12-28 17:19 | NUR ---
UNDERWNENT I/D OF ABDOMINAL ABSCESS AND TOLERATED IT WELL. A/OX3,CALM AND COOPERATIVE, DRESSING ON ABDOMEN C,D,I.
[2016-12-29 02:46] VITALS: BP 145/91
[2016-12-29 07:18] VITALS: BP 143/82
--- NOTE | 2016-12-29 08:00 | Progress Note ---
Subjective General 61-year-old with history of atrial fibrillation, heart block post pacemaker placement, hypertension, hyperlipidemia, type 2 diabetes mellitus insulin requiring, chronic kidney disease, gallbladder dysfunction, colonic polyps, cervical disc disease, lumbar disc disease, esophageal reflux, CHF presented to [facility] emergency department on the day of admission secondary to complaints of abdominal wall abscess. [facility] ER evaluation consistent with abdominal wall abscess requiring incision and drainage. Admitted by surgery wit IM/FP consultation. Pt feeling better post yesterdays surgery. Some bleeding from wound last night and dressing was changed. Dressing left in place today for surgery evaluation. Pt denies nausea, vomiting or pain. Physical Exam Vital Signs / I&Os Vital Signs Date Time Temp Pulse Resp B/P Pulse O2 O2 Flow FiO2 Ox Delivery Rate 12/29 0718 97.9 69 18 143/82 100 Room Air 0.0 12/29 0246 98.4 59 18 145/91 97 Room Air 12/28 2253 98.6 59 18 140/63 96 Room Air 12/28 2110 Room Air 12/28 1820 98.2 69 18 114/69 97 12/28 1515 70 18 151/81 94 12/28 1445 71 18 133/69 94 12/28 1429 70 18 131/71 92 12/28 1410 70 18 129/71 93 Room Air 0.0 12/28 1355 115/62 12/28 1338 97.9 67 18 91 Room Air 12/28 1335 70 18 108/64 97 12/28 1330 97.2 70 18 112/66 99 12/28 1325 70 20 102/64 100 12/28 1320 70 18 103/58 98 12/28 1315 70 18 106/56 99 12/28 1310 70 20 104/54 100 MASK 6.0 12/28 1307 97.3 70 20 107/50 100 MASK 6.0 12/28 1000 98.2 70 20 136/67 92 Room Air 12/28 0911 Room Air I&O 12/28 0800 12/28 1600 12/29 0000 Intake Total 358 150 2533 Output Total 700 1300 650 Balance -84 -1100 604 General Appearance Alert, Oriented X3, Cooperative, No acute distress Lungs Clear to auscultation Cardiovascular Regular rate and rhythm Abdomen Normal bowel sounds, Soft, No tenderness Extremities No edema Skin Suprapubic dressing in place. LAB Results Laboratory Tests 12/29 0515 Chemistry Plasma Sodium (136 - 145 mmol/L) 138 Plasma Potassium (3.5 - 5.1 mmol/L) 4.3 Plasma Chloride (98 - 107 mmol/L) 104 CO2 (Enzymatic) (21 - 32 mmol/L) 27 BUN (7 - 18 mg/dL) 14 Creatinine (0.6 - 1.3 mg/dL) 1.1 Est GFR ( Amer) (mL/min) >60 Est GFR (Non-Af Amer) (mL/min) 53.67 Glucose (70 - 110 mg/dL) 206 Plasma Calcium (8.5 - 10.1 mg/dL) 9.7 Hematology WBC (4.5 - 11.5 K/uL) 10.9 RBC (4.00 - 5.20 M/uL) 4.46 Hgb (12.0 - 16.0 gm/dL) 12.4 Hct (36.0 - 46.0 %) 39.3 MCV (80 - 100 fL) 88 MCH (26 - 34 pg) 28 RDW (11.6 - 14.8 %) 17.1 Neut % (Auto) (50 - 75 %) 69.1 Lymph % (Auto) (25 - 40 %) 21.3 [place] % (Auto) (3 - 14 %) 7.3 Eos % (Auto) (0 - 4 %) 2.0 Baso % (Auto) (0 - 2 %) 0.3 Plt Count, EDTA (150 - 400 K/uL) 332 PUBS MCHC (31 - 37 g/dL) 32 Assessment and Plan Problem List 1. Suprapubic abscess Plan On antibiotics post surgery. 2. Diabetes type 2, controlled Plan On sliding scale insulin.
--- NOTE | 2016-12-29 08:00 | Progress Note ---
Subjective General 61-year-old with history of atrial fibrillation, heart block post pacemaker placement, hypertension, hyperlipidemia, type 2 diabetes mellitus insulin requiring, chronic kidney disease, gallbladder dysfunction, colonic polyps, cervical disc disease, lumbar disc disease, esophageal reflux, CHF presented to [facility] emergency department on the day of admission secondary to complaints of abdominal wall abscess. [facility] ER evaluation consistent with abdominal wall abscess requiring incision and drainage. Admitted by surgery wit IM/FP consultation. Pt feeling better post yesterdays surgery. Some bleeding from wound last night and dressing was changed. Dressing left in place today for surgery evaluation. Pt denies nausea, vomiting or pain. Physical Exam Vital Signs / I&Os Vital Signs Date Time Temp Pulse Resp B/P Pulse O2 O2 Flow FiO2 Ox Delivery Rate 12/29 0718 97.9 69 18 143/82 100 Room Air 0.0 12/29 0246 98.4 59 18 145/91 97 Room Air 12/28 2253 98.6 59 18 140/63 96 Room Air 12/28 2110 Room Air 12/28 1820 98.2 69 18 114/69 97 12/28 1515 70 18 151/81 94 12/28 1445 71 18 133/69 94 12/28 1429 70 18 131/71 92 12/28 1410 70 18 129/71 93 Room Air 0.0 12/28 1355 115/62 12/28 1338 97.9 67 18 91 Room Air 12/28 1335 70 18 108/64 97 12/28 1330 97.2 70 18 112/66 99 12/28 1325 70 20 102/64 100 12/28 1320 70 18 103/58 98 12/28 1315 70 18 106/56 99 12/28 1310 70 20 104/54 100 MASK 6.0 12/28 1307 97.3 70 20 107/50 100 MASK 6.0 12/28 1000 98.2 70 20 136/67 92 Room Air 12/28 0911 Room Air I&O 12/28 0800 12/28 1600 12/29 0000 Intake Total 552 595 6748 Output Total 700 1300 650 Balance -84 -1100 604 General Appearance Alert, Oriented X3, Cooperative, No acute distress Lungs Clear to auscultation Cardiovascular Regular rate and rhythm Abdomen Normal bowel sounds, Soft, No tenderness Extremities No edema Skin Suprapubic dressing in place. LAB Results Laboratory Tests 12/29 0515 Chemistry Plasma Sodium (136 - 145 mmol/L) 138 Plasma Potassium (3.5 - 5.1 mmol/L) 4.3 Plasma Chloride (98 - 107 mmol/L) 104 CO2 (Enzymatic) (21 - 32 mmol/L) 27 BUN (7 - 18 mg/dL) 14 Creatinine (0.6 - 1.3 mg/dL) 1.1 Est GFR ( Amer) (mL/min) >60 Est GFR (Non-Af Amer) (mL/min) 53.67 Glucose (70 - 110 mg/dL) 206 Plasma Calcium (8.5 - 10.1 mg/dL) 9.7 Hematology WBC (4.5 - 11.5 K/uL) 10.9 RBC (4.00 - 5.20 M/uL) 4.46 Hgb (12.0 - 16.0 gm/dL) 12.4 Hct (36.0 - 46.0 %) 39.3 MCV (80 - 100 fL) 88 MCH (26 - 34 pg) 28 RDW (11.6 - 14.8 %) 17.1 Neut % (Auto) (50 - 75 %) 69.1 Lymph % (Auto) (25 - 40 %) 21.3 [place] % (Auto) (3 - 14 %) 7.3 Eos % (Auto) (0 - 4 %) 2.0 Baso % (Auto) (0 - 2 %) 0.3 Plt Count, EDTA (150 - 400 K/uL) 332 PUBS MCHC (31 - 37 g/dL) 32 Assessment and Plan Problem List 1. Suprapubic abscess Plan On antibiotics post surgery. 2. Diabetes type 2, controlled Plan On sliding scale insulin.
[2016-12-29 10:35] VITALS: BP 113/47
--- NOTE | 2016-12-29 13:34 | NUR ---
Pharmacy To Dose Vancomcyin Dx-abd abscess Labs- SCr 1.1 CrCl 68 ml/min Afebrile Cx pending WBC 10.9 Vanco Troughs- 13.4 mcg/ml @1200 on 12/29/16 A/P: VT of 13.4 mcg is in goal range. Will cont with vanco 1000mg IV q12h. Repeat VT for 1130 on 12/31/16. F/U with cx. Pharmacy will cont to follow.
--- NOTE | 2016-12-29 14:33 | NUR ---
NUTRITION ASSESSMENT: Pt admitted with dx/o abdominal absesses. Pt with PMH of diabetes type II stated as controlled, a-fib, pacemaker, CHF, GERD, anxiety, angina, hyperlipidemia, hypothyroid, neuropathy, low back pain, chronic back pain, HTN, see H&P. Pt is previous pt of diabetes and nutrition clinic. Diet Rx: Consistent Carb Diet NKFA Wts: 118.9 kg Ht: 64" IBW: 60-68 kg BMI: 45 %IBW: 175% ABW: ~83 kg Est Kcals: ~4621-5765 kcals per day Est Pro: 85-120 g per day Est FLuids: 2.4 L per day Meds Incl: elavil, estradilol, fluconozole, gabapentin, 30 units lantus hs, med dose SSI, vanco, protonix, torsemide, spironolactone, see eMar for comlete list/details. Labs Incl: (12/29) glucose 206, BUN 14, Creat 1.1, Na+ 138, K+ 4.3, Ca+ 9.7, HCT 39.3, HGB 12.4, MCV 88, MCH 28 Skin: Kd Score 19; surgical inc Accuchecks: 166-265 A: Pt po intake ~90-100% of meals per documentation. Rev'd meds and labs. Rec continue consistent carb diet as appears appropriate and tolerated at this time. Follow up with diabetes and nutrition clinic. P: 1. Continue same 2. Follow up with diabetes and nutrition clinic.
[2016-12-29 14:39] VITALS: BP 131/61
--- NOTE | 2016-12-29 15:23 | NUR ---
Pt currently resting in chair with no complaints of pain, N/V or SOB. Pt was previously c/o vaginal itching but has no complaints since receiving rx treatment. She reports having occasional abdominal pain with movement, but she says it is mild and being controlled by her scheduled pain medication. Abdominal incision is covered with abd dressing that is clean/dry/intact. Pt was up walking this afternoon, reporting that it felt good to get moving. She had no SOB with activity. Her call light is in place and I am performing hourly rounding.
[2016-12-29 18:38] VITALS: BP 127/62
[2016-12-29 23:09] VITALS: BP 130/63
[2016-12-30 02:26] VITALS: BP 154/70
[2016-12-30 07:08] VITALS: BP 129/73
--- NOTE | 2016-12-30 07:52 | Progress Note ---
Subjective General 61-year-old with history of atrial fibrillation, heart block post pacemake, hypertension, hyperlipidemia, type 2 diabetes mellitus insulin requiring, CKD, gallbladder dysfunction, colonic polyps, cervical disc disease, lumbar disc disease, GERD, CHF admitted with abdominal wall abscess to surgery with IM/FP consult. Feeling improved and wanting to go home. Tolerating po intake and ambulation but is uncertain how to handle dressing changes. Does not think she can do them herself. Physical Exam Vital Signs / I&Os Vital Signs Date Time Temp Pulse Resp B/P Pulse O2 O2 Flow FiO2 Ox Delivery Rate 12/30 0708 69 20 129/73 98 Room Air 0.0 12/30 0226 97.5 62 17 154/70 98 Room Air 12/29 2309 97.5 59 17 130/63 95 Room Air 12/29 2020 Room Air 12/29 1838 97.9 69 17 127/62 95 Room Air 12/29 1439 97.5 70 18 131/61 97 Room Air 12/29 1035 98.1 69 18 113/47 100 Room Air 0.0 I&O 12/29 0800 12/29 1600 12/30 0000 Intake Total 2110 1560 1775 Output Total 425 1250 2050 Balance 1685 310 -275 General Appearance Alert, Oriented X3, Cooperative, No acute distress Lungs Clear to auscultation Cardiovascular Regular rate and rhythm Abdomen Normal bowel sounds, Soft, No tenderness Extremities No edema Skin No Rashes, Wound care per surgery. LAB Results Laboratory Tests 12/29 1200 Toxicology Vancomycin Trough (10.0 - 20.0 ug/mL) 13.4 Assessment and Plan Problem List 1. Suprapubic abscess Plan Improving post op. 2. Diabetes type 2, controlled Plan Will increase lantus. At home pt is on toujeo 60 units qhs and novolog 40 units qid with meals in addition to weekly tanzeum. 3. Atrial fibrillation Status Chronic Onset Date Unknown Plan stable.
--- NOTE | 2016-12-30 11:02 | NUR ---
Spoke with Dr Sanchez regarding patient, DC today, currently on daily dressing changes in hospital to abdomen which is s/p I&D abscess. Per patient, she and do not feel able to do dressing changes at home. Patient not homebound, so HH not a option, set up daily dressing changes for here in hospital for next 4 days starting tomorrow, and then patient has appt at [facility] next Tuesday at 10:00am. Information faxed to [facility] and call to confirm information and MRSA+. Will continue to monitor.
[2016-12-30 11:11] VITALS: BP 118/66
[2016-12-30] MEDS ORDERED: BACTRIM DS1 TAB PO (14:01)
[2016-12-30] MEDS ORDERED: LYRICA100 MG PO (14:04)
[2016-12-30] MEDS ORDERED: TOUJEO SOL300 UNIT/M SC (14:08)
[2016-12-30] MEDS ORDERED: NOVOLOG PE100 UNITS/ SC (14:10)
--- NOTE | 2016-12-30 14:14 | Provider's Discharge Care Plan ---
Problem, Goal, Plan Problem List 1. Suprapubic abscess Goals: Improved health/wellness Instructions: Take meds as directed 2. UTI (urinary tract infection) Goals: Improve disease control Instructions: Take meds as directed 3. Chronic anticoagulation Goals: Improved health/wellness Instructions: Take meds as directed 4. Atrial fibrillation Goals: Improved health/wellness Instructions: Take meds as directed 5. Diabetes type 2, controlled Goals: Improved health/wellness Instructions: Take meds as directed
--- NOTE | 2016-12-30 15:02 | DISCHARGE SUMMARY ---
ADMIT DATE: 12/27/2016 DISCHARGE DATE: 12/30/2016 ADMISSION DIAGNOSIS: 1. Abdominal wall abscess. 2. Diabetes mellitus type 2, poorly controlled. 3. Hypercalcemia 4. Atrial fibrillation. 5. Chronic anticoagulation. 6. Urinary tract infection. 7. Dehydration. DISCHARGE DIAGNOSES: 1. Abdominal wall abscess. 2. Diabetes mellitus type 2, poorly controlled. 3. Hypercalcemia 4. Atrial fibrillation. 5. Chronic anticoagulation. 6. Urinary tract infection. 7. Dehydration. BRIEF HISTORY: The patient presented with a 2-week history of increasing difficulty with an infection in the suprapubic area on the abdominal wall treated as an outpatient with Bactrim, but not resolved. The patient presented with increasing pain. HOSPITAL COURSE: The patient was admitted. CT of the abdomen showed abscess. A surgical consultation was obtained. The patient was placed on IV Levaquin and IV vancomycin. Urinalysis at admission showed a UTI as well as the abscess. Culture was obtained which showed MRSA. The patient went to the operating theater. The abscess was excised in its entirety and clean wound base was obtained. This was treated with wet-to-dry dressings. The patient was continued on IV vancomycin and IV Levaquin. She tolerated this well and by the was tolerating oral intake, ambulating without difficulty, afebrile and with stable vital signs. Blood sugars did go up some during the hospitalization, but stabilized with a sliding scale. The patient remained otherwise stable. DISPOSITION: Home. DISCHARGE MEDICATIONS/INSTRUCTIONS: 1. Toujeo insulin 60 units subcutaneous at bedtime. 2. NovoLog insulin 40 units subcutaneous before meals. 3. Estradiol 1 mg p.o. daily. 4. Torsemide 20 mg p.o. t.i.d. 5. Paroxetine 25 mg p.o. daily. 6. Xarelto 20 mg p.o. daily. 7. Morphine sulfate ER 15 mg p.o. at bedtime. 8. Oxycodone IR 5 mg 1 p.o. 4 times daily. 9. Spironolactone 25 mg p.o. t.i.d. 10. Bactrim 1 p.o. b.i.d. x14 days. 11. Lyrica 300 mg p.o. t.i.d. The patient was instructed to discontinue amitriptyline, larger dose of gabapentin, Lantus insulin and Novolin insulin. Additionally, the patient takes Tanzeum; however, this was not available in our computer system to enter into the discharge summary, she takes 1 shot weekly. Special instructions: Diabetic diet. Wound dressing daily at [facility], follow up in 1 week with wound care appointment. Continue diabetic management per endocrinology in [place].
--- NOTE | 2016-12-30 15:45 | NUR ---
WENT OVER DC INSTRUCTIONS, GAVE PRESCRIPTIONS AND EDUCATION ON CURRENT DIAGNOSIS. PT STATED UNDERSTANDING. WILL BE COMING IN OVER THE WEEKENED FOR SUPRAPUBIC DRESSNING CHANGES UNTIL SEEN BY WOUND CARE CLINIC ON TUESDAY NEXT WEEK. RETRIEVED BAG OF MEDICATIONS FROM PHARMACY AND RETURNED TO PT. ESCORTED OUT VIA WC TO PRIVATE CAR HOME.
== END 2016-12-30 16:30 | disposition home or self-care (01) | DRG 571 ==
LOC: ED SRH 16:46 → ACUTE2 SRH 20:54 → TRANS SRH 20:54 → ACUTE2 SRH 20:54
PROVIDERS: Surgery; ADMIT Student in an Organized Health Care Education/Training Program
PROC: 0JB80ZZ Excision of Abdomen Subcutaneous Tissue and Fascia, Open Approach (ICD-10-PCS; principal; 2016-12-28 12:00)
DX: L02.211 Cutaneous abscess of abdominal wall (principal); N39.0 Urinary tract infection, site not specified; E11.65 Type 2 diabetes mellitus with hyperglycemia; E11.22 Type 2 diabetes mellitus with diabetic chronic kidney disease; I12.9 Hypertensive chronic kidney disease with stage 1 through stage 4 chronic kidney disease, or unspecified chronic kidney disease; N18.9 Chronic kidney disease, unspecified; E86.0 Dehydration; E83.52 Hypercalcemia; Z79.4 Long term (current) use of insulin; I48.91 Unspecified atrial fibrillation; Z79.01 Long term (current) use of anticoagulants; F32.9 Major depressive disorder, single episode, unspecified; Z95.0 Presence of cardiac pacemaker
CPT/HCPCS: 29230; 50004; 60001; 70002; 85241; 90004; 90047; 90065; 90070; 90074; 90098; 90100; 90131; 90309; 90469; 90470; 91320; 91583; 91672; 92031; 93004; 95059

== ENCOUNTER 2017-01-24 17:34 | Outpatient (CLI) | payer OTHER, BC ==
[~2017-01-24 17:34] MED LIST changes: +BACTRIM DS1 TAB PO; +LYRICA100 MG PO; +NOVOLOG PE100 UNITS/ SC; +TOUJEO SOL300 UNIT/M SC
== END 2017-01-24 23:00 ==
LOC: LAB SRH 17:34
DX: K92.1 Melena (principal); R10.30 Lower abdominal pain, unspecified
CPT/HCPCS: 90074; 90100; 95059

== ENCOUNTER → 2017-03-05 | Outpatient (CLI) | payer OTHER, BC | LOC: LAB SRH 07:00 | DX: E11.42 Type 2 diabetes mellitus with diabetic polyneuropathy (principal) | CPT/HCPCS: 90047; 90074; 90185; 91286; 91504; 91610; 92690 ==